=== PATIENT | female | born 1940 | race Caucasian/White ===

== ENCOUNTER 2017-09-15 09:58 | Inpatient (IN) | payer OTHER ==
[~2017-09-15] VITALS: Ht 162.6 cm; Wt 108.9 kg
[~2017-09-15 09:58] MED LIST: ALTACE10 M1; AMARYL; ATORVASTATIN CA20 MG PO; CATAPRES0.1 MG; CATAPRES0.1 MG PO; COUMADIN5 MG; COZAAR100 MG; FLUCONAZOLE100 MG PO; GABAPENTIN100 MG PO; GLIMEPIRIDE4 MG PO; IMDUR 60MG60 MG; ISOSORBIDE MONO60 MG PO; LEVOXYL25 MCG PO; LIPITOR40 MG; MILLIPRED5 MG PO; PHENOBARBITAL100 MG; PREDNISONE5 MG/5 ML; Prednisone PO; RANITIDINE HCL300 M1 PO; RANITIDINE HCL300 MG; TAMSULOSIN HCL0.4 MG PO; TEKTURNA300 MG; TENORMIN50 MG PO; TIGAN300 MG PO; URETRON D-S TAB1 TAB PO; WARFARIN SODIUM5 MG PO
[2017-09-26] MEDS ORDERED: GABAPENTIN100 MG PO (10:16)
[2017-09-26] MEDS ORDERED: GLIMEPIRIDE4 MG PO (10:16)
[2017-09-26] MEDS ORDERED: ISOSORBIDE MONO60 MG PO (10:16)
[2017-09-26] MEDS ORDERED: PRE PROTEIN 2030 ML PO (10:16)
[2017-09-26] MEDS ORDERED: CATAPRES0.1 MG PO (10:16)
[2017-09-26] MEDS ORDERED: MILLIPRED5 MG PO (10:16)
[2017-09-26] MEDS ORDERED: WARFARIN SODIUM5 MG PO (10:16)
[2017-09-26] MEDS ORDERED: TENORMIN50 MG PO (10:16)
[2017-09-26] MEDS ORDERED: Intestinex CAP PO (10:16)
[2017-09-26] MEDS ORDERED: ATORVASTATIN CA20 MG PO (10:16)
[2017-09-26] MEDS ORDERED: TAMSULOSIN HCL0.4 MG PO (10:16)
== END 2017-09-26 13:51 | disposition home or self-care (01) | DRG 690 ==
LOC: ER 09:58 → SEC-K 15:06 → MEDJ 15:06
PROC: 8E0ZXY6 Isolation (ICD-10-PCS; 2017-09-15)
PROC: BW28ZZZ Computerized Tomography (CT Scan) of Head (ICD-10-PCS; principal; 2017-09-21)
DX: N39.0 Urinary tract infection, site not specified (principal); E27.3 Drug-induced adrenocortical insufficiency; F05 Delirium due to known physiological condition; E23.0 Hypopituitarism; E66.01 Morbid (severe) obesity due to excess calories; I10 Essential (primary) hypertension; E11.65 Type 2 diabetes mellitus with hyperglycemia; T38.0X5A Adverse effect of glucocorticoids and synthetic analogues, initial encounter; I25.10 Atherosclerotic heart disease of native coronary artery without angina pectoris; I48.0 Paroxysmal atrial fibrillation; Z79.01 Long term (current) use of anticoagulants; E03.8 Other specified hypothyroidism; E78.4 Other hyperlipidemia; E11.42 Type 2 diabetes mellitus with diabetic polyneuropathy; Z16.24 Resistance to multiple antibiotics; B96.1 Klebsiella pneumoniae [K. pneumoniae] as the cause of diseases classified elsewhere

== ENCOUNTER 2018-12-27 02:54 | Inpatient (IN) | payer OTHER ==
[~2018-12-27] VITALS: Ht 162.6 cm; Wt 113.4 kg
[~2018-12-27 02:54] MED LIST changes: +Intestinex CAP PO; +PRE PROTEIN 2030 ML PO
[2018-12-28] MEDS ORDERED: INTESTINEX680 M1 PO (16:46)
[2019-01-19] MEDS ORDERED: CATAPRES0.1 MG PO (13:10)
[2019-01-19] MEDS ORDERED: ATORVASTATIN CA20 MG PO (13:10)
[2019-01-19] MEDS ORDERED: LEVOTHYROXINE112 MCG PO (13:10)
[2019-01-19] MEDS ORDERED: MONTELUKAST SOD10 MG PO (13:10)
[2019-01-19] MEDS ORDERED: GLIMEPIRIDE4 MG PO (13:10)
[2019-01-19] MEDS ORDERED: TAMSULOSIN HCL0.4 MG PO (13:10)
[2019-01-19] MEDS ORDERED: CLONAZEPAM0.5 MG PO (13:10)
[2019-01-19] MEDS ORDERED: MILLIPRED5 MG PO (13:10)
[2019-01-19] MEDS ORDERED: WARFARIN SODIUM5 MG PO (13:10)
[2019-01-19] MEDS ORDERED: ATENOLOL50 MG PO (13:10)
[2019-01-19] MEDS ORDERED: INTESTINEX680 M1 PO (13:10)
[2019-01-19] MEDS ORDERED: BENZONATATE100 MG PO (13:10)
[2019-01-19] MEDS ORDERED: AMOX-CLAV 875-1 EACH PO (13:10)
[2019-01-19] MEDS ORDERED: COUMADIN1 MG PO (13:10)
[2019-01-19] MEDS ORDERED: LORATADINE10 MG PO (13:10)
[2019-01-19] MEDS ORDERED: GABAPENTIN100 MG PO (13:10)
[2019-01-19] MEDS ORDERED: FLUCONAZOLE200 MG PO (13:10)
[2019-01-19] MEDS ORDERED: POLY119PG PO (13:10)
[2019-01-19] MEDS ORDERED: FAMOTIDINE20 MG PO (13:10)
== END 2019-01-19 18:42 | disposition home or self-care (01) | DRG 593 ==
LOC: ER 02:54 → MEDI 12-28 11:59 → SEC-K 12-28 11:59 → MEDI 12-28 16:34 → MEDJ 01-08 14:24
PROVIDERS: ADMIT Internal Medicine Geriatric Medicine
PROC: 8E0ZXY6 Isolation (ICD-10-PCS; principal; 2018-12-30)
PROC: 02HV33Z Insertion of Infusion Device into Superior Vena Cava, Percutaneous Approach (ICD-10-PCS; 2018-12-31)
PROC: 0HD7XZZ Extraction of Abdomen Skin, External Approach (ICD-10-PCS; 2019-01-11)
DX: L98.498 Non-pressure chronic ulcer of skin of other sites with other specified severity (principal); E87.1 Hypo-osmolality and hyponatremia; E23.0 Hypopituitarism; E27.49 Other adrenocortical insufficiency; L02.211 Cutaneous abscess of abdominal wall; K43.9 Ventral hernia without obstruction or gangrene; B96.29 Other Escherichia coli [E. coli] as the cause of diseases classified elsewhere; L89.892 Pressure ulcer of other site, stage 2; J06.9 Acute upper respiratory infection, unspecified; B95.2 Enterococcus as the cause of diseases classified elsewhere; B96.5 Pseudomonas (aeruginosa) (mallei) (pseudomallei) as the cause of diseases classified elsewhere; B96.4 Proteus (mirabilis) (morganii) as the cause of diseases classified elsewhere; E86.0 Dehydration; D72.828 Other elevated white blood cell count; E03.8 Other specified hypothyroidism; I48.0 Paroxysmal atrial fibrillation; I10 Essential (primary) hypertension; E11.9 Type 2 diabetes mellitus without complications; I25.10 Atherosclerotic heart disease of native coronary artery without angina pectoris; E66.01 Morbid (severe) obesity due to excess calories; G47.33 Obstructive sleep apnea (adult) (pediatric); G62.89 Other specified polyneuropathies; F68.8 Other specified disorders of adult personality and behavior; K59.09 Other constipation; Z16.12 Extended spectrum beta lactamase (ESBL) resistance; Z79.01 Long term (current) use of anticoagulants; Z74.01 Bed confinement status

== ENCOUNTER 2019-02-14 09:10 | Inpatient (IN) | payer OTHER ==
[~2019-02-14] VITALS: Ht 162.6 cm; Wt 181.4 kg
[~2019-02-14 09:10] MED LIST changes: +AMOX-CLAV 875-1 EACH PO; +ATENOLOL50 MG PO; +BENZONATATE100 MG PO; +CLONAZEPAM0.5 MG PO; +COUMADIN1 MG PO; +FAMOTIDINE20 MG PO; +FLUCONAZOLE200 MG PO; +INTESTINEX680 M1 PO; +LEVOTHYROXINE112 MCG PO; +LORATADINE10 MG PO; +MONTELUKAST SOD10 MG PO; +POLY119PG PO
--- NOTE | 2019-02-14 10:40 | NUR ---
SE RECIBE PTE. EN AMBUULANCIA ACOMPA[facility] DE FAMILIAR QUE REIERE PTE. SANGRANDO POR HERNIA ABDOMINAL, SE PASA A AREA DE CRITICO-3 SE REALIZA EKG Y A MEDICO EN TURNO PARA EVALUACION Y FIRMA. PTE. CON PRESIONES BAJAS.
--- NOTE | 2019-02-14 11:11 | NUR ---
PTE. LLEGO CON AREA DE PRESION SACRAL Y HEMATOMA EN LADO DERECHO CUADRANTE INFERIOR.
--- NOTE | 2019-02-14 12:20 | NUR ---
LA HIJA DE LA PTE ELI FUENTES DEJO MAURICIO BYRCE DE [phone] PARA QUE SE COMUNIQUEN CON KRISTOPHER.
== END 2019-03-02 12:03 | disposition expired | DRG 592 ==
LOC: ER 09:10 → ICU-2 12:59 → MEDJ 12:59 → ICU 02-15 21:54 → MEDJ 02-24 19:25
PROVIDERS: ADMIT Internal Medicine Geriatric Medicine
PROC: 4A12X4Z Monitoring of Cardiac Electrical Activity, External Approach (ICD-10-PCS; principal; 2019-02-14)
PROC: 30233N1 Transfusion of Nonautologous Red Blood Cells into Peripheral Vein, Percutaneous Approach (ICD-10-PCS; 2019-02-14)
PROC: 05HB33Z Insertion of Infusion Device into Right Basilic Vein, Percutaneous Approach (ICD-10-PCS; 2019-02-15)
PROC: 02HV33Z Insertion of Infusion Device into Superior Vena Cava, Percutaneous Approach (ICD-10-PCS; 2019-02-15)
PROC: B246ZZZ Ultrasonography of Right and Left Heart (ICD-10-PCS; 2019-02-15)
PROC: 8E0ZXY6 Isolation (ICD-10-PCS; 2019-02-16)
PROC: B54MZZZ Ultrasonography of Right Upper Extremity Veins (ICD-10-PCS; 2019-02-18)
DX: L98.498 Non-pressure chronic ulcer of skin of other sites with other specified severity (principal); R65.21 Severe sepsis with septic shock; E23.0 Hypopituitarism; N39.0 Urinary tract infection, site not specified; E27.49 Other adrenocortical insufficiency; D68.8 Other specified coagulation defects; N17.8 Other acute kidney failure; I13.0 Hypertensive heart and chronic kidney disease with heart failure and stage 1 through stage 4 chronic kidney disease, or unspecified chronic kidney disease; I50.40 Unspecified combined systolic (congestive) and diastolic (congestive) heart failure; E87.1 Hypo-osmolality and hyponatremia; R57.1 Hypovolemic shock; E11.9 Type 2 diabetes mellitus without complications; I48.0 Paroxysmal atrial fibrillation; E66.01 Morbid (severe) obesity due to excess calories; Z74.01 Bed confinement status; B96.1 Klebsiella pneumoniae [K. pneumoniae] as the cause of diseases classified elsewhere; B96.29 Other Escherichia coli [E. coli] as the cause of diseases classified elsewhere; B95.7 Other staphylococcus as the cause of diseases classified elsewhere; E03.8 Other specified hypothyroidism; Z66 Do not resuscitate; N18.9 Chronic kidney disease, unspecified; I25.10 Atherosclerotic heart disease of native coronary artery without angina pectoris; D50.0 Iron deficiency anemia secondary to blood loss (chronic); Z16.12 Extended spectrum beta lactamase (ESBL) resistance; J06.9 Acute upper respiratory infection, unspecified; S41.121A Laceration with foreign body of right upper arm, initial encounter